=== PATIENT | male | born 1990 | race Caucasian/White ===

== ENCOUNTER 2019-06-23 13:11 | Emergency (ER) | payer OTHER, SELFPAY ==
[2019-06-23 13:15] VITALS: BP 143/87; PULSE 106; RESP 16; TEMP 36.7; O2SAT 99; BMI 29.8
--- NOTE | 2019-06-24 00:06 | ED_ITS ---
HPI - Dental/Oral <REAGAN Aviles - Last Filed: 06/24/19 00:16> General Chief complaint: Dental/Oral Stated complaint: Filling fell out,cracked tooth Time Seen by Provider: 06/23/19 13:20 Source: patient Mode of arrival: Ambulatory History of Present Illness HPI Narrative: This is 28-year-old male, nonsmoker, who presents to ED with right lower tooth filling removal and cracked tooth for last 2 months with increasing pain. Patient states he has been using Orajel and xfmr-qit-cgyrzga self filler that he had purchased from the drugstore but the pain has not been effectively managed. Patient denies fever, chills, nausea or vomiting. Patient had used ibuprofen sporadically. He does have an appointment with [facility] on 07/03/19 but he presents to ED today to get some help and pain relief. Patient denies any lymph node swelling or pain. Related Data Previous Rx's Medication Instructions Recorded naproxen [Naprosyn] 500 mg PO BIDCC #30 tab 10/11/17 penicillin V potassium 500 mg PO Q6H 7 Days #28 tab 06/23/19 Allergies Allergy/AdvReac Type Severity Reaction Status Date / Time No Known Drug Allergies Allergy Verified 06/23/19 13:15 Review of Systems <REAGAN Aviles - Last Filed: 06/24/19 00:16> Review of Systems ROS Unobtainable: All systems reviewed & are unremarkable except as noted in HPI and below PFSH <REAGAN Aviles - Last Filed: 06/24/19 00:16> Surgical History H/O hand surgery (Acute) H/O knee surgery (Acute) H/O rotator cuff surgery (Acute) Social History (Updated 06/24/19 @ 00:11 by REAGAN Aviles) Smoking Status: Never smoker Exam <REAGAN Aviles - Last Filed: 06/24/19 00:16> Narrative Exam Narrative: General appearance: well developed, well nourished, in no acute distress. Head: normocephalic, atraumatic, no scalp lesions, non-tender. No significant swelling/redness to face Eye: pupil equal, round. EOMI. Nose: nares patent. Oral: mucosa moist. Right lower diluted capped with OTC light color self-filler material. No significant swelling or redness to surrounding area. Neck/Thyroid: neck supple, full range of motion, no visible masses. Nose cervical adenopathy. Skin: no suspicious rashes, lesions over visible areas. Warm and dry. Heart: no clubbing, no cyanosis, no edema. Lungs: Breathing even and unlabored. No stridor. No accessory muscles used. Chest: normal shape and expansion. Abdomen: non-obese, non-distended. Neurologic: alert and oriented. Cognitive exam, BEVERAGE STEWARD and PNS grossly intact on informal exam. Psych: good eye contact, normal affect. Initial Vital Signs Initial Vital Signs: Vital Signs Temperature 98.0 F 06/23/19 13:15 Pulse Rate 106 H 06/23/19 13:15 Respiratory Rate 16 06/23/19 13:15 Blood Pressure 143/87 H 06/23/19 13:15 Pulse Oximetry 99 06/23/19 13:15 <Lupe Real DO - Last Filed: 06/24/19 07:47> Initial Vital Signs Initial Vital Signs: Vital Signs Temperature 98.0 F 06/23/19 13:15 Pulse Rate 106 H 06/23/19 13:15 Respiratory Rate 16 06/23/19 13:15 Blood Pressure 143/87 H 06/23/19 13:15 Pulse Oximetry 99 06/23/19 13:15 Scores <REAGAN Aviles - Last Filed: 06/24/19 00:16> GCS [place] coma scale eye opening: Spontaneous [place] coma scale verbal response: Orientated [place] coma scale motor response: Obey commands [place] coma scale total score: 15 [facility] - Dental/Oral <REAGAN Aviles - Last Filed: 06/24/19 00:16> Differential Diagnosis Differential diagnosis: Likely dental caries, toothache and other (Dental infection) Medical Records Attestation: I reviewed the patient's medical records. [facility] Narrative Medical decision making narrative: This is a 28-year-old male who presents to ED with right lower tooth aches which started about 2 months ago after tooth feeling fell off and had also fractured tooth. Patient has been using xpvt-ybg-djeiofq products to ease the pain but this were an infective. Patient advised to use osju-hei-ywzlmbx Tylenol and Motrin with food for discomfort and the medication dose and frequency were informed. Patient was prophylactically treated with penicillin for dental infection. Patient advised to follow up with dentist as scheduled on 07/03/19 and return precautions were discussed with patient. No further questions were expressed at this time and patient agrees with treatment plan. Discharge Plan Departure Patient Disposition: Home Clinical Impression: Dental infection, Pain, dental Discharge Date/Time: 06/23/19 14:23 Instructions: DI for Dental Pain Activity Restrictions/Additional Instructions: You have been diagnosed with [dental pain is likely caused by to tooth filling removal and fracture.]. What to do: *Take your medications as directed. As we discussed, please take Tylenol up to 4000 mg/24 hr period and Motrin 600-800 mg 3 times a day with food. These will help with dental pain. I will retreat you with antibiotic medication for possible dental infection. This has been transmitted to [facility]. Please take penicillin 4 times a day for next 7 days. *Follow up with your primary care provider in 2-3 days and [facility] dental clinic as scheduled on 07/03/19, call for an appointment. Let them know you were seen in the ED and that we asked you to be seen in follow up. *Return to ED if you have any new, worsening, or concerning symptoms, such as [fever, redness/swelling spreading to your face, chest pain, breathing difficulty, unable to tolerate fluids, or any acute concerns]. Prescriptions: New penicillin V potassium 500 mg tablet 500 mg PO Q6H 7 Days Qty: 28 RF: 0 No Action naproxen [Naprosyn] 500 MG tablet 500 mg PO BIDCC Qty: 30 RF: 0
== END 2019-06-23 14:23 | disposition home or self-care (01) ==
PROVIDERS: Emergency Provider Nurse Practitioner Family; Family Provider Pediatrics
DX: K04.7 Periapical abscess without sinus (principal)
CPT/HCPCS: 99282

== ENCOUNTER → 2019-08-25 11:40 | Outpatient (CLI) | payer OTHER, MEDICAID, SELFPAY ==
--- NOTE | 2019-08-25 11:44 | DI.RAD.S_ITS ---
PROCEDURE: XR LUMBAR SPINE MIN 4V INDICATIONS: low back pain with sciatica TECHNIQUE: 5 views of the lumbar spine were acquired. COMPARISON: [facility], , L-SPINE 2-3 VIEWS, 11/16/2010, 9:52. FINDINGS: Bones: 5 nonrib-bearing vertebrae are present. There is normal bony alignment. No vertebral body compression fractures. No suspicious bony lesions. Soft tissues: Overlying bowel gas pattern is normal. No suspicious soft tissue calcifications. Oblique images: No pars defects. IMPRESSION: No acute radiographic findings. No spondylolysis or spondylolisthesis. Dictated by: Kamila Wills M.D. on 08/25/2019 at 14:05 Approved by: Kamila Wills M.D. on 08/25/2019 at 14:06
--- NOTE | 2019-08-25 11:44 | DI.RAD.S_ITS ---
PROCEDURE: XR PELVIS 1-2V INDICATIONS: low back pain with sciatica TECHNIQUE: Single view(s) of the pelvis acquired. COMPARISON: [facility], , PELVIS W UNILATERAL HIP RIGHT, 06/22/2010, 15:06. FINDINGS: Bones: No fractures or dislocations. No suspicious bony lesions. Soft tissues: Visualized bowel gas pattern is normal. No suspicious soft tissue calcifications. IMPRESSION: No acute radiographic findings. If there is continued pain, followup exam or additional imaging such as MRI or CT could be performed for further assessment. Dictated by: Kamila Wills M.D. on 08/25/2019 at 14:04 Approved by: Kamila Wills M.D. on 08/25/2019 at 14:05
== END ==
PROVIDERS: PCP Family Medicine; Visit Provider Family Medicine
DX: M54.40 Lumbago with sciatica, unspecified side (principal); S06.9X9A Unspecified intracranial injury with loss of consciousness of unspecified duration, initial encounter; F43.10 Post-traumatic stress disorder, unspecified
CPT/HCPCS: 72110; 72170

== ENCOUNTER → 2019-11-14 16:01 | Outpatient (CLI) | payer OTHER, MEDICAID, SELFPAY ==
--- NOTE | 2019-11-14 16:03 | DI.RAD.S_ITS ---
PROCEDURE: XR KNEE LT 3V INDICATIONS: Bilateral knee pain TECHNIQUE: 3 views of the knee were acquired. COMPARISON: [facility], , KNEE 3V LEFT, 08/23/2008, 20:07. FINDINGS: Bones: No fractures or dislocations. No suspicious bony lesions. A 7 mm sclerotic density in the proximal tibia is most likely a pleasant. Soft tissues: No joint effusion. No suspicious soft tissue calcifications. IMPRESSION: No acute osseous abnormality. Dictated by: Maria A Mena M.D. on 11/14/2019 at 17:31 Approved by: Maria A Mena M.D. on 11/14/2019 at 17:32
--- NOTE | 2019-11-14 16:03 | DI.RAD.S_ITS ---
PROCEDURE: XR KNEE RT 3V INDICATIONS: Bilateral knee pain TECHNIQUE: 3 views of the knee were acquired. COMPARISON: None. FINDINGS: Bones: No fractures or dislocations. No suspicious bony lesions. Soft tissues: No joint effusion. No suspicious soft tissue calcifications. IMPRESSION: No acute osseous abnormality. Dictated by: Maria A Mena M.D. on 11/14/2019 at 17:32 Approved by: Maria A Mena M.D. on 11/14/2019 at 17:33
== END ==
PROVIDERS: PCP Family Medicine; Referring Provider Family Medicine; Visit Provider Family Medicine
DX: M25.561 Pain in right knee (principal); M25.562 Pain in left knee; G89.29 Other chronic pain
CPT/HCPCS: 73562

== ENCOUNTER 2019-12-26 04:29 | Day surgery (SDC) | payer OTHER, MEDICAID, SELFPAY ==
[2019-12-26] VITALS (9 sets, daily range): BP systolic 127–166; BP diastolic 72–91; PULSE 77–102; RESP 10–20; TEMP 36.3–36.8; O2SAT 93–98
[2019-12-26] MEDS: LIDO 1%/SOD BICARB 8.4% (10ML) 10 ML SYRINGE INJ (04:46)
[2019-12-26 05:48] LABS: Add Manual Diff / Slide Review NO; Basophils Absolute Auto 0 /uL (0-100); Basophils Percent Auto 0.3 % (0-2); Eosinophils Absolute Auto 100 /uL (0-450); Eosinophils Percent Auto 0.8 % (2-4); Hematocrit 49.5 % (41-53); Lymphocytes Absolute Auto 3200 /uL (1100-4500); Lymphocytes Percent Auto 37.9 % (25-40); Mean Corpuscular HGB Conc 34.3 % (30-36); Mean Corpuscular Hemoglobin 29.8 PG (26-34); Mean Corpuscular Volume 86.6 fL (80-100); Monocytes Absolute Auto 500 /uL (0-900); Neutrophils Absolute Auto 4700 /uL (1500-7000); Platelet Count 259 X10^3/uL (150-400); Red Blood Cell Count 5.71 X10^6/uL (4.5-5.9); Red Cell Distribution Width 12.9 % (11.6-14.8); White Blood Cell Count 8.6 X10^3/uL (4.5-11.0)
--- NOTE | 2019-12-26 05:52 | ED_ITS ---
HPI - Wound/Laceration General Chief Complaint: Wound/Laceration Stated Complaint: gash on rt forearm Time Seen by Provider: 12/26/19 04:30 Source: patient Mode of arrival: Ambulatory Limitations: no limitations History of Present Illness HPI narrative: 29-year-old male nonsmoker with noncontributory medical history presents with a chief complaint an accidental deep laceration on his right forearm at the base of his pinky. He states he had a few beers tonight and was wrestling with his dog out by a [place] fire and tripped and fell into a glass window which broke and lacerated his arm. He states that it was squirting blood initially and now he has decreased sensation in his right 5th finger and some decreased strength. Patient states his tetanus is up-to-date. He denies any recent cough, shortness of breath or fever. He has not had any exposure to persons under suspicion for COVID-19 Related Data Home Medications Medication Instructions Recorded Confirmed multivitamin 1 tab PO DAILY 08/07/19 11/14/19 Previous Rx's Medication Instructions Recorded escitalopram oxalate 10 mg tablet 10 mg PO DAILY #30 tab 10/30/19 Allergies Allergy/AdvReac Type Severity Reaction Status Date / Time No Known Drug Allergies Allergy Verified 11/14/19 15:19 Review of Systems Constitutional Constitutional: Denies chills, Denies fatigue, Denies fever(s), Denies frequent falls, Denies lethargy and Denies weakness Eyes Eyes: Denies change in vision, Denies eye discharge, Denies irritation and Denies loss of vision ENT Ears, Nose, Mouth, and Throat: Denies change in voice, Denies dizziness, Denies neck pain, Denies sore throat and Denies throat swelling Cardiovascular Cardiovascular: Denies chest pain, Denies irregular heart rhythm, Denies lightheadedness, Denies palpitations, Denies dyspnea, Denies dyspnea on exertion and Denies orthopnea Respiratory Respiratory: Denies cough, Denies dyspnea, Denies dyspnea on exertion and Denies wheezing Gastrointestinal Gastrointestinal: Denies abdominal pain, Denies change in bowel habits, Denies diarrhea, Denies nausea and Denies vomiting Genitourinary Genitourinary: Denies hematuria, Denies flank pain, Denies urinary incontinence and Denies urinary urgency Musculoskeletal Musculoskeletal: Denies back pain, Denies muscle weakness, Denies neck pain, Reports numbness and Reports tingling Integumentary/Breasts Skin/Breast: Denies pruritus, Denies erythema, Denies rash and Reports wounds Comments: 5th finger weakness Neurologic Neurologic: Denies behavioral changes, Denies confusion, Denies dizziness, Denies frequent falls, Denies loss of vision, Reports numbness, Reports tingling and Denies weakness Psychiatric Psychiatric: Denies anxiety, Denies behavioral changes, Denies confusion, Denies depression, Denies homicidal ideation and Denies suicidal ideation Endocrine Endocrine: Denies fatigue, Denies flushing and Denies palpitations Hematologic/Lymphatic Hematologic/Lymphatic: Denies easy bruising Allergic/Immunologic Allergic/Immunologic: Denies urticaria, Denies throat swelling and Denies wheezing Patient History Medical History Arm laceration (Acute) Bilateral chronic knee pain (Acute) Cervicothoracic somatic dysfunction (Acute) Chronic back pain (Chronic ~2014) Chronic headache (Acute) Chronic neck pain (Acute) Closed TBI (traumatic brain injury) (Acute) Cranial somatic dysfunction (Acute) Hearing loss (Chronic) Low back pain potentially associated with radiculopathy (Acute) Lower limb region somatic dysfunction (Acute) Lumbar region somatic dysfunction (Acute) Pelvic somatic dysfunction (Acute) Post concussion syndrome (Acute) PTSD (post-traumatic stress disorder) (Chronic ~2018) Right knee pain (Acute) Segmental and somatic dysfunction of abdomen and other regions (Acute) Segmental and somatic dysfunction of sacral region (Acute) Segmental and somatic dysfunction of thoracic region (Acute) Situational anxiety (Acute) Somatic dysfunction of lower extremities (Acute) Surgical History Anesthesia (Resolved) H/O hand surgery (Acute ~2008) H/O knee surgery (Acute ~2011) H/O rotator cuff surgery (Acute) History of tonsillectomy (Resolved ~2010) Family History Mother Diabetes mellitus Father No problems noted. Social History Smoking Status: Never smoker Smoking Status: Never smoker alcohol intake frequency: a few times a month Substance Use Type: does not use Exam Narrative Exam Narrative: GEN: AOx3 and in mild distress EYES: Pupils are equal, round, and reactive to light and accommodation. Extraoccular muscles are intact bilaterally. There is no subconjunctival hemorrhage or exudate. CHEST: Lungs are clear to auscultation bilaterally and free of wheezes, rales, or rhonchi. Heart rate is regular rhythm, there are no murmurs, clicks, rubs, or gallops. There is no chest wall tenderness. ABD: Abdomen is soft and nontender. There is no guarding or rebound. Bowel sounds are normal in all 4 quadrants. There is no mass or organomegaly. EXT: 3cm deep laceration on volar aspect of right forearm overlying distal ulna, proximal to wrist. Initially minimal bleeding, but after it is numbed and cleaned the bleeding becomes heavy, pulsatile and bright red. Unable to easily apply pressure to minimize bleeding. Difficult to see tendon glide, but given weakness there is suspicion of tendon involvement. Additionally, there is some numbness of left 5th finger. Ultrasound notes intact ulnar artery distal to injury. No FB noted SKIN: Warm, pink, and dry. No erythema or rash Initial Vital Signs Initial Vital Signs: Vital Signs Temperature 97.4 F L 12/26/19 04:37 Pulse Rate 98 H 12/26/19 04:37 Respiratory Rate 18 12/26/19 04:37 Blood Pressure 144/76 H 12/26/19 04:37 Pulse Oximetry 98 12/26/19 04:37 Course Orders Ordered: ED Orders 12/26/19 05:20 Basic Metabolic Panel Stat Complete Blood Count AUTO DIFF Stat Type and Screen Stat Discontinued Medications Lidocaine/Sodium Bicarbonate (Buffered Lidocaine 10 Ml Syr) 10 ml INJ NOW ONE Stop: 12/26/19 04:38 Last Admin: 12/26/19 04:46 Dose: 10 ml [facility] Vital Signs Vital signs: Vital Signs - 8 hr 12/26/19 04:37 12/26/19 05:30 Temperature 97.4 F L Pulse Rate 102 H 87 Respiratory Rate 18 14 Blood Pressure 144/76 H Blood Pressure [Left Arm] 144/76 H 136/77 Pulse Oximetry 95 95 MDM - Wound/Laceration Lab Data Result diagrams: 12/26/19 05:20 12/26/19 05:20 Labs: Lab Results 12/26/19 12/26/19 Range/Units 05:20 05:20 WBC 8.6 (4.5-11.0) X10^3/uL RBC 5.71 (4.5-5.9) X10^6/uL Hgb 17.0 (13.5-17.5) g/dL Hct 49.5 (41-53) % MCV 86.6 (80-100) fL MCH 29.8 (26-34) PG MCHC 34.3 (30-36) % RDW 12.9 (11.6-14.8) % Plt Count 259 (150-400) X10^3/uL Neut % (Auto) 55.0 (50-75) % Lymph % (Auto) 37.9 (25-40) % [place] % (Auto) 6.0 (3-14) % Eos % (Auto) 0.8 L (2-4) % Baso % (Auto) 0.3 (0-2) % Neut # (Auto) 4700 (0784-4914) /uL Lymph # (Auto) 3200 (6744-6073) /uL [place] # (Auto) 500 (0-900) /uL Eos # (Auto) 100 (0-450) /uL Baso # (Auto) 0 (0-100) /uL Sodium 139 (137-145) mmol/L Potassium 4.3 (3.4-5.1) mmol/L Chloride 109 H (98-107) mmol/L Carbon Dioxide 29 (22-32) mmol/L BUN 15 (9-20) mg/dL Creatinine 1.21 (0.66-1.25) mg/dL Estimated GFR > 60.0 (>60) mL/min BUN/Creatinine Ratio 12.4 (6-22) Glucose 95 (70-100) mg/dL Calcium 9.5 (8.4-10.2) mg/dL MDM Narrative Medical decision making narrative: given concern for deep arterial involvement and tendon involvement, call to ortho. Dr. Cavazos requests activation of surgical team for exploration Discharge Plan Departure Patient Disposition: Swing Bed/[facility] Clinical Impression: Arm laceration, Laceration of ulnar artery Admit Date/Time: 12/26/19 05:42 Admit Provider: Mayra Cavazos
[2019-12-26 05:58] LABS: BUN Creatinine Ratio 12.4 (6-22); Blood Urea Nitrogen 15 mg/dL (9-20); Calcium 9.5 mg/dL (8.4-10.2); Carbon Dioxide 29 mmol/L (22-32); Chloride 109 mmol/L (98-107); Estimated Glomerular Filt Rate > 60.0 mL/min (>60); Glucose 95 mg/dL (70-100); HEMOLYSIS 17 (0-50); Potassium 4.3 mmol/L (3.4-5.1); Sodium 139 mmol/L (137-145)
--- NOTE | 2019-12-26 06:06 | PM.HP.1 ---
History of Present Illness History of Present Illness Date Patient Seen: 12/26/19 Time Patient Seen: 06:07 Date of Onset of Symptoms: 12/26/19 Chief complaint: gash on rt forearm Narrative: 29-year-old [place] male was playing with his dog and had several beers this morning about 3:00 a.m. put his hand through a plate glass window he sustained a ulnar wrist distal forearm laceration he was unable to stop the bleeding he reports there was spurting or squirting blood at the time. He was seen in the [facility] ED suspected arterial bleeding as well as weakness and numbness suspected nerve and tendon injuries. Bleeding was not controlled with pressure in the emergency department the patient was indicated for operative exploration. Denies any allergies. Denies fevers or chills. Patient History Medical History Arm laceration (Acute) Bilateral chronic knee pain (Acute) Cervicothoracic somatic dysfunction (Acute) Chronic back pain (Chronic ~2014) Chronic headache (Acute) Chronic neck pain (Acute) Closed TBI (traumatic brain injury) (Acute) Cranial somatic dysfunction (Acute) Hearing loss (Chronic) Low back pain potentially associated with radiculopathy (Acute) Lower limb region somatic dysfunction (Acute) Lumbar region somatic dysfunction (Acute) Pelvic somatic dysfunction (Acute) Post concussion syndrome (Acute) PTSD (post-traumatic stress disorder) (Chronic ~2018) Right knee pain (Acute) Segmental and somatic dysfunction of abdomen and other regions (Acute) Segmental and somatic dysfunction of sacral region (Acute) Segmental and somatic dysfunction of thoracic region (Acute) Situational anxiety (Acute) Somatic dysfunction of lower extremities (Acute) Surgical History Anesthesia (Resolved) H/O hand surgery (Acute ~2008) H/O knee surgery (Acute ~2011) H/O rotator cuff surgery (Acute) History of tonsillectomy (Resolved ~2010) Family & Social History Family History Mother Diabetes mellitus Father No problems noted. Safety & Behavioral: Feels Safe in Current Yes Environment Tobacco & Substance use: Smoking Status Never smoker alcohol intake frequency a few times a month Substance Use Type does not use Meds Home Medications and Allergies Home Medications Medication Instructions Recorded Confirmed Type multivitamin 1 tab PO DAILY 08/07/19 11/14/19 History escitalopram oxalate 10 mg tablet 10 mg PO DAILY #30 tab 10/30/19 11/14/19 Rx Allergies Allergy/AdvReac Type Severity Reaction Status Date / Time No Known Drug Allergies Allergy Verified 11/14/19 15:19 Review of Systems Review of Systems ROS: Yes All systems reviewed with the patient and are negative except as otherwise documented Exam Vital Signs (past 8 hours): - 12/26/19 04:37 12/26/19 05:30 Temperature 97.4 F L Pulse Rate 102 H 87 Respiratory Rate 18 14 Blood Pressure 144/76 H Blood Pressure [Left Arm] 144/76 H 136/77 Pulse Oximetry 95 95 Oxygen Delivery Method Room Air Narrative Exam Narrative: Alert oriented male no acute distress Breathing unlabored on room air lungs clear to auscultation Heart regular rate and rhythm Abdomen benign Right upper extremity with a pressure wrap on the wrist laceration. Compartments are soft. Demonstrates weakness in interosseous strength on the right compared to the left does demonstrate FDP and FDS function. Palpable radial pulse digits are warm and well perfused. Full elbow range of motion. Decreased sensation ulnar small finger Objective Labs Result Diagrams: 12/26/19 05:20 12/26/19 05:20 Labs: Laboratory Results - last 24 hr 12/26/19 12/26/19 05:20 05:20 WBC 8.6 RBC 5.71 Hgb 17.0 Hct 49.5 MCV 86.6 MCH 29.8 MCHC 34.3 RDW 12.9 Plt Count 259 Neut % (Auto) 55.0 Lymph % (Auto) 37.9 [place] % (Auto) 6.0 Eos % (Auto) 0.8 L Baso % (Auto) 0.3 Neut # (Auto) 4700 Lymph # (Auto) 3200 [place] # (Auto) 500 Eos # (Auto) 100 Baso # (Auto) 0 Sodium 139 Potassium 4.3 Chloride 109 H Carbon Dioxide 29 BUN 15 Creatinine 1.21 Estimated GFR > 60.0 BUN/Creatinine Ratio 12.4 Glucose 95 Calcium 9.5 Assessment & Plan Assessment & Plan narrative: Wrist volar ulnar laceration. Presumed arterial and nerve injury. Possible tendon injury. Deep laceration with uncontrolled pulsatile bleeding in the ER. Patient was indicated for operative exploration. Discussed with the patient risks benefits and alternatives including but not limited to need for additional later surgery or reconstruction. Discussed risks with nerve injury numbness weakness clawing and deformity as well as stiffness after lacerations and/or tendon repair. Patient understands and agrees with the plan. I discussed exploration of the wound would be performed with repair of structures as indicated. Based on operative findings patient may need later referral to a hand or micro surgeon if indicated. Patient understands and agrees with the plan. Consent was signed. He will be taken to the operative room emergently. The risks and benefits of the procedure have been discussed with the patient even opportunity to ask questions. The risks of surgery include but are not limited to infection, malunion, nonunion, persistence of pain, damage to nerves and blood vessels, posttraumatic arthritis, DVT, PE, cardiopulmonary complications and . The patient expressed a thorough understanding of the risks and benefits of surgery and has elected to proceed. Consent was signed in today. Time Spent With Patient Time with patient: less than 15 minutes Quality VTE Deep Vein Thrombosis/Pulmonary Embolism Present on Admission: No
--- NOTE | 2019-12-26 06:13 | PM.PREOP ---
Pre-operative Note Interval Note History & Physical reviewed/Exam performed by Physician: Yes Changes to H&P: No
[2019-12-26] MEDS: LACTATED RINGERS 1,000 ML 42 ML IV ×2 (06:15→09:36)
[2019-12-26] MEDS: CEFAZOLIN 2 GM/100 ML FROZ.PIGGY IV (06:39)
--- NOTE | 2019-12-26 07:16 | SUR.OPER ---
Supine on padded OR bed, head on pillow, left arm secured on padded arm board at <90 degrees abduction, operative right arm on hand table, legs uncrossed, safety belt at thigh, tape over blanket over lower legs.
--- NOTE | 2019-12-26 08:31 | PM.OP.1 ---
Operative Date/Time/Diagnoses Date of procedure: 12/26/19 Time of procedure: 06:42 Pre-op diagnosis: Right volar wrist laceration Post-op diagnosis: other (Right volar wrist laceration, flexor carpi ulnaris tendon laceration) Procedure & Clinicians Procedure: Exploration irrigation debridement volar right wrist laceration Repair flexor carpi ulnaris tendon 47381 Layered closure laceration 44608 Exploration removal foreign body right wrist 35307 Same procedure as scheduled: Yes Indications: Patient is a 29-year-old mnkgq-wyik-lascjock male that was playing with his dog outside near of [employer] early this morning about 3:00 a.m.. He threw the ball near the fire and to avoid the dog going near the fire he reached out but ended up placing his based through his jeep window. He sustained a complex deep laceration to the volar right wrist with pulsatile bleeding. He was unable to stop the bleeding a presented to the ER where the bleeding continued and was not controlled. Additionally the patient endorsed loss of sensation the ulnar side of his hand and weakness in interosseous function he was able to demonstrate FDP and FDS function. Was indicated for emergent operative intervention for suspected arterial and nerve injury exploration of the wound repair of structures as indicated. The risks and benefits of the procedure have been discussed with the patient even opportunity to ask questions. The risks of surgery include but are not limited to infection, persistence of pain, damage to nerves and blood vessels, persistent numbness, deformity, clawing, weakness, stiffness, need for additional procedures, DVT, PE, cardiopulmonary complications and . The patient expressed a thorough understanding of the risks and benefits of surgery and has elected to proceed. Consent was signed. We also discussed that depending on the findings he may be indicated for additional referral to hand or micro surgery Surgeon: Mayra Cavazos Click Yes if Unassisted: Yes Anesthesia Type: General Operative Notes Findings: Complex oblique deep volar ulnar wrist laceration proximal to the retinaculum. 90% laceration of flexor carpi ulnaris tendon. Retained foreign bodies-glass. Closure Type: primary Specimen(s): none sent Prosthetic devices, grafts, tissues, transplants, or devices: Splint Estimated Blood Loss (mL): 10 Blood products transfused: none Tourniquet time (min): 55 Procedure in detail: Patient was seen in the emergency room and examined consent was signed and the site of surgery was marked. The patient was brought then brought directly to the operating room by the anesthesia team. Was positioned supine on the operative table and underwent general endotracheal anesthesia utilizing the standard airborne precautions during the pandemic. The rest of the staph entered the room. The right upper extremities prepped and draped in the standard sterile fashion. A nonsterile brachial tourniquet was placed. The pressure dressing from the ER was removed was noted at this time that the bleeding from the wrist laceration had stopped. The wrist was prepped and draped in the standard sterile fashion. Formal time-out procedure was performed confirming the patient's side and site of surgery administered option of a preoperative antibiotics and informed consent. All were in agreement Attention turned to the right upper extremity. Esmarch tourniquet was used for exsanguination the tourniquet raised to 250 mm of mercury and stayed there for 55 minutes The volar ulnar incision was approximately 4 cm in length this was extended proximally and distally for exposure. Incision was taken to the skin subcutaneous tissue. The wound was explored there was some hemorrhage muscle. The FCU tendon was found and noted to be nearly 90% lacerated. With into the tendon laceration was a proximally 0.5 cm glass fragment foreign body this was removed. An additional 3 smaller glass fragments were also found in this area of the wound and carefully removed. A thorough exploration of the tendinous and neurovascular structures was completed proximal and distal noting intact flexor digitorum superficialis flexor digitorum profundus muscles. The neurovascular bundle was explored. The ulnar artery and veins and ulnar nerve did appear intact however in the location of the wound these did lie directly behind the area of the FCU tendon lacerations or certainly very near the site of injury. Flexor carpi ulnaris tendon repair was performed with 2 0 FiberWire in a locking technique. At the completion of the exploration the wound was irrigated thoroughly with saline and the tourniquet was released. Hemostasis was achieved there were few superficial venous bleeders. No pulsatile bleeding was observed at this time and anabaptism of the ulnar pulse observing the artery in the wound was noted. The hand was well perfused. The wound was then closed in a layered fashion with 3 O Vicryl and 3 O nylon suture. A dorsal blocking splint in slight wrist flexion was placed to protect the FCU repair. Patient was then woken from anesthesia and taken to recovery room in good condition. There no immediate complications from this procedure. Complications: none Post-operative Condition: stable Disposition: PACU Plan for aftercare: Discharged from PACU home. Follow up in 2 weeks for suture removal and splint removal. Keep splint clean dry and intact. Take oral antibiotic prescription as ordered.
[2019-12-26] MEDS: OXYCODONE/ACETAMINOPHEN 5/325 TABLET 1 TAB PO (09:28)
--- NOTE | 2019-12-26 09:30 | SUR.PHASEI ---
Stable PACU stay. Recieved fentanyl by Dr. Vernon. and percocet by this RN. Dr Cavazos to bedside and spoke at length with pt
--- NOTE | 2019-12-26 10:04 | SUR.PHASEII ---
D/C instructions discussed, r arm remained iced and elevated while here. Mom called, pt dressed when ready. Stated pain tolerable and had juice and pudding prior to d/c.
--- NOTE | 2019-12-26 10:33 | SUR.PHASEII ---
Pt left unit in stable condition and care taken over by his mom.
== END 2019-12-26 10:10 | disposition home or self-care (01) ==
LOC: ED 04:37 → AC 06:58 → OR 09:24
PROVIDERS: Emergency Provider Emergency Medicine; PCP Family Medicine; Referring Provider Emergency Medicine; Visit Provider Orthopaedic Surgery Foot and Ankle Surgery
PROC: (CPT 25260; principal; 2019-12-26 06:10)
DX: S56.221A Laceration of other flexor muscle, fascia and tendon at forearm level, right arm, initial encounter (principal); W45.8XXA Other foreign body or object entering through skin, initial encounter; W25.XXXA Contact with sharp glass, initial encounter; W22.09XA Striking against other stationary object, initial encounter; Y93.89 Activity, other specified; W18.39XA Other fall on same level, initial encounter
CPT/HCPCS: 25260; 25248; 36415; 80048; 85025; 86850; 86900; 86901; 99284; J0330; J0690; J1100; J2405; J2704; J3010

== ENCOUNTER 2021-07-08 12:58 | Emergency (ER) | payer OTHER, MEDICAID, SELFPAY ==
[2021-07-08 13:09] VITALS: BP 121/70; PULSE 68; RESP 15; TEMP 36.3; O2SAT 98; BMI 30.9
[2021-07-08] MEDS: KETOROLAC 30 MG/ML VIAL IM (14:13)
[2021-07-08] MEDS: LIDO 1%/SOD BICARB 8.4% (10ML) 10 ML SYRINGE INJ (14:34)
[2021-07-08 15:35] VITALS: BP 129/83; PULSE 73; O2SAT 96
--- NOTE | 2021-07-08 21:16 | ED_ITS ---
HPI - Skin/Abscess/Foreign Bdy <REAGAN Ritter - Last Filed: 07/08/21 21:30> General Chief complaint: Skin/Abscess/Foreign Body Stated complaint: Knot on Tailbone, Impairing Walking Time Seen by Provider: 07/08/21 13:41 Source: patient Mode of arrival: Ambulatory Limitations: no limitations History of Present Illness HPI narrative: Mauricio Cardona is a 30-year-old male without any pertinent medical history who presents to the ED today for 3 days of painful bump on his tailbone that is worse with walking. He denies any recent fever, no history of this in the past, he denies any substance use. He states he has been using ice which has been helpful. He denies any rash or a painful spine. He reports that he feels like it is swelling it is getting worse. Related Data Home Medications Medication Instructions Recorded Confirmed multivitamin (Daily Multi-Vitamin) 1 tab PO DAILY 08/07/19 10/09/20 Previous Rx's Medication Instructions Recorded escitalopram oxalate 10 mg tablet 10 mg PO DAILY #30 tab 10/30/19 hydrocodone 5 mg-acetaminophen 325 1 tab PO Q6H PRN #20 tab 12/26/19 mg tablet amoxicillin 875 mg-potassium 1 tab PO BID 5 Days #10 tab 07/08/21 clavulanate 125 mg tablet (Augmentin) tramadol 50 mg tablet 50 mg PO BID PRN #14 tab 07/08/21 Allergies Allergy/AdvReac Type Severity Reaction Status Date / Time No Known Drug Allergies Allergy Verified 07/08/21 13:09 Review of Systems <REAGAN Ritter - Last Filed: 07/08/21 21:30> Review of Systems Narrative: General: denies fever, chills Head/Neck: denies headache, neck pain Eyes: denies visual changes, eye pain Cardio: denies chest pain, palpitations Respiratory: denies shortness of breath, cough GI: denies abdominal pain, nausea, vomiting, or diarrhea : denies dysuria, hematuria MSK: denies joint pain, muscle weakness Skin: denies rash, itching,complains of bump on tailbone Neuro: denies numbness, tingling Patient History <REAGAN Ritter - Last Filed: 07/08/21 21:30> Medical History (Updated 07/08/21 @ 15:25 by REAGAN Ritter) Acute low back pain Arm laceration Bilateral chronic knee pain Cervicothoracic somatic dysfunction Chronic back pain (~2014) Chronic headache Chronic neck pain Chronic pain of left knee Closed TBI (traumatic brain injury) Constipation Cranial somatic dysfunction Difficulty controlling anger Hearing loss Low back pain potentially associated with radiculopathy Lower limb region somatic dysfunction Lumbar region somatic dysfunction Pelvic somatic dysfunction Post concussion syndrome PTSD (post-traumatic stress disorder) (~2018) Right knee pain Segmental and somatic dysfunction of abdomen and other regions Segmental and somatic dysfunction of sacral region Segmental and somatic dysfunction of thoracic region Situational anxiety Sleep behavior disorder, REM Somatic dysfunction of lower extremities Surgical History Anesthesia H/O hand surgery (~2008) H/O knee surgery (~2011) H/O rotator cuff surgery History of tonsillectomy (~2010) Family History Mother Diabetes mellitus Father No problems noted. Social History Smoking Status: Never smoker Smoking Status: Never smoker alcohol intake frequency: a few times a week Substance Use Type: does not use Exam <REAGAN Ritter - Last Filed: 07/08/21 21:30> Narrative Exam Narrative: Independently reviewed vitals signs and nursing notes. General: Awake, alert, nontoxic, no cardiorespiratory distress Head/Neck: Atraumatic, neck full range of motion Eyes: EOMI, conjunctiva normal Nose: nares patent, no rhinorrhea Mouth/Throat: moist mucus membranes, posterior pharynx normal, no oral lesions Cardio: Regular rate and rhythm, no peripheral edema Respiratory: respirations unlabored without wheezing, stridor, or rales. No retractions. GI: Abdomen soft, nontender MSK: Moves all extremities, neurovascularly intact Skin: Normal capillary refill, no rash, 2 cm x 1 cm erythematous and edematous abscess tracking laterally to the left from anal verge up Neuro: Normal speech and cognition, normal gait Initial Vital Signs Initial Vital Signs: Vital Signs Temperature 97.3 F L 07/08/21 13:09 Pulse Rate 68 07/08/21 13:09 Respiratory Rate 15 07/08/21 13:09 Blood Pressure 121/70 07/08/21 13:09 Pulse Oximetry 98 07/08/21 13:09 <Ilsa Crenshaw MD - Last Filed: 07/09/21 07:40> Initial Vital Signs Initial Vital Signs: Vital Signs Temperature 97.3 F L 07/08/21 13:09 Pulse Rate 68 07/08/21 13:09 Respiratory Rate 15 07/08/21 13:09 Blood Pressure 121/70 07/08/21 13:09 Pulse Oximetry 98 07/08/21 13:09 Procedures <REAGAN Ritter - Last Filed: 07/08/21 21:30> Abscess I/D I&D #1: Site: rishi-rectal Side (if applicable): left (Midline incision) Local Anesthetic: lidocaine 1% and with bicarb Amount of anesthesia used (mL): 8 Technique: incised with #11 blade Amount of fluid expressed (mL): 5 Irrigation: Yes Packing used?: none Course <REAGAN Ritter - Last Filed: 07/08/21 21:30> Orders Ordered: Discontinued Medications Ketorolac Tromethamine (Ketorolac 30 Mg/Ml Vial) 30 mg IM NOW ONE Stop: 07/08/21 14:09 Last Admin: 07/08/21 14:13 Dose: 30 mg Documented by: CLAUDE Vital Signs Vital signs: Vital Signs - 8 hr 07/08/21 15:35 Pulse Rate 73 Blood Pressure 129/83 Pulse Oximetry 96 <Ilsa Crenshaw MD - Last Filed: 07/09/21 07:40> Orders Ordered: Discontinued Medications Ketorolac Tromethamine (Ketorolac 30 Mg/Ml Vial) 30 mg IM NOW ONE Stop: 07/08/21 14:09 Last Admin: 07/08/21 14:13 Dose: 30 mg Documented by: CLAUDE Vital Signs Vital signs: Vital Signs - 8 hr 07/08/21 15:35 Pulse Rate 73 Blood Pressure 129/83 Pulse Oximetry 96 MDM - Skin/Abscess/Foreign Bdy <REAGAN Ritter - Last Filed: 07/08/21 21:30> MDM Narrative Medical decision making narrative: 30-year-old male presents the ED today for what is most likely a pilonidal cyst without abscess that has been bothersome for 1 month. I and D of the round, erythematous and edematous area without any purulent drainage. Granulation tissue was debrided, there were no signs of cellulitis or spreading. Patient had approximate 5 ml blood loss with some clear and bloody fluid drainage. Differential includes pilonidal cyst with abscess, cellulitis, pilonidal cyst without abscess. Patient is appropriate and amenable to discharge home. Vital signs are stable on repeat examination is unremarkable. Patient has been informed of results. Patient has been given strict return to ER precautions for any new or worsening symptoms. Patient understands to follow up closely with outpatient providers as instructed. Patient understands plan and agrees to discharge home. All questions and concerns answered at this time. Discharge Plan Departure Patient Disposition: Home Clinical Impression: Pilonidal cyst Instructions: DI for Pilonidal Cyst Drainage or Removal Activity Restrictions/Additional Instructions: *You have been diagnosed with a pilonidal cyst, it does not appear to be an abscess at this time. Sorry for how long the procedure took today, I think that we treated what I could today, unfortunately there was not a pocket of pus which made it obvious. Please start your antibiotics tonight, return to the emergency department or the walk-in clinic if this gets worse, or you develop a fever, or started feeling ill. Please continue to warm moist packs 4 to 6 times a day to encourage drainage and healing from the inside out. I hope you feel better soon, you are always welcome to come back here if this returns. *What to do: *Please continue to take your regular medications as directed. [x] New medication prescriptions sent to your pharmacy: [[facility]] [ ] New medication written as a paper prescription [ ] No new medications given *Please follow up with your primary care provider in 2-3 days, call for an appointment. Let them know you were seen in the Emergency Department and that we ask that you be seen in follow up. We will electronically transmit a record of today's note if your PCP is in our system *If you do not have a primary care provider please contact the [facility] Resource line at [phone]. They will ask some questions about your medical history and help get you set up with a doctor in the community. *Return to Emergency Department if you should have any new, worsening or concerning symptoms, such as [fever greater than 101F, chills, worsening pain, persistent vomiting or other bothersome symptoms] Prescriptions: New amoxicillin-pot clavulanate [Augmentin] 875-125 mg tablet 1 tab PO BID 5 Days Qty: 10 RF: 0 tramadol 50 mg tablet 50 mg PO BID PRN (Reason: pain) Qty: 14 RF: 0 No Action multivitamin [Daily Multi-Vitamin] Tablet 1 tab PO DAILY RF: 0 escitalopram oxalate 10 mg tablet 10 mg PO DAILY Qty: 30 RF: 1 hydrocodone-acetaminophen 5-325 mg tablet 1 tab PO Q6H PRN (Reason: pain) Qty: 20 RF: 0 Referrals: Cornelius Eckert DO [Primary Care Provider] - <Ilsa Crenshaw MD - Last Filed: 07/09/21 07:40> [facility]: I was immediately available in the department for consultation throughout this patient's visit. I agree with documentation as above. Ilsa Crenshaw MD
== END 2021-07-08 15:36 | disposition home or self-care (01) ==
PROVIDERS: Emergency Provider Nurse Practitioner Critical Care Medicine; PCP Family Medicine
DX: L05.01 Pilonidal cyst with abscess (principal)
CPT/HCPCS: 10060; 96372; 99283; J1885

== ENCOUNTER → 2022-04-05 10:24 | Outpatient (CLI) | payer OTHER, MEDICAID, SELFPAY ==
[2022-04-05 12:10] LABS: Add Manual Diff / Slide Review NO; Basophils Absolute Auto 0 /uL (0-100); Basophils Percent Auto 0.4 % (0-2); Eosinophils Absolute Auto 100 /uL (0-450); Eosinophils Percent Auto 1.7 % (2-4); Hematocrit 46.7 % (41-53); Hemoglobin 16.3 g/dL (13.5-17.5); Lymphocytes Absolute Auto 2000 /uL (1100-4500); Lymphocytes Percent Auto 31.4 % (25-40); Mean Corpuscular Hemoglobin 28.9 PG (26-34); Mean Corpuscular Volume 82.6 fL (80-100); Monocytes Absolute Auto 400 /uL (0-900); Monocytes Percent Auto 6.2 % (3-14); Neutrophils Absolute Auto 3800 /uL (1500-7000); Neutrophils Percent Auto 60.3 % (50-75); Platelet Count 232 X10^3/uL (150-400); Red Blood Cell Count 5.65 X10^6/uL (4.5-5.9); Red Cell Distribution Width 12.7 % (11.6-14.8); White Blood Cell Count 6.3 X10^3/uL (4.5-11.0)
[2022-04-05 13:03] LABS: Alanine Aminotransferase 54 IU/L (<50); Albumin 4.6 g/dL (3.5-5.0); Albumin Globulin Ratio 1.6 (1.0-2.8); Alkaline Phosphatase 79 U/L (38-126); Aspartate Aminotransferase 31 IU/L (17-59); BUN Creatinine Ratio 19.6 (6-22); Bilirubin Total 0.7 mg/dL (0.2-1.3); Blood Urea Nitrogen 18 mg/dL (9-20); Calcium 9.2 mg/dL (8.4-10.2); Carbon Dioxide 27 mmol/L (22-32); Chloride 104 mmol/L (98-107); Cholesterol 193 mg/dL (140-199); Estimated Glomerular Filt Rate > 60 mL/min (>60); Globulin 2.8 g/dL (1.7-4.1); Glucose 93 mg/dL (70-100); HDL Cholesterol 29 mg/dL (40-60); HEMOLYSIS < 15 (0-50); LDL Cholesterol Calculated 144 mg/dL (<100); Potassium 4.3 mmol/L (3.4-5.1); Sodium 139 mmol/L (137-145); Total Protein 7.4 g/dL (6.3-8.2); Triglycerides 98 mg/dL (35-150)
== END ==
PROVIDERS: PCP Family Medicine; Referring Provider Family Medicine; Visit Provider Family Medicine
DX: F10.21 Alcohol dependence, in remission (principal)
CPT/HCPCS: 36415; 80053; 80061; 85025

== ENCOUNTER → 2022-06-30 10:17 | Outpatient (CLI) | payer OTHER, MEDICAID, SELFPAY ==
[2022-07-14 10:01] LABS: Percent Free Testosterone 2.68 % (1.50-4.20); Testosterone Free 14.28 ng/dL (5.00-21.00); Testosterone Total 532.9 ng/dL (264.0-916.0)
== END ==
PROVIDERS: PCP Family Medicine; Referring Provider Family Medicine; Visit Provider Family Medicine
DX: N52.9 Male erectile dysfunction, unspecified (principal)
CPT/HCPCS: 36415; 84402; 84403

== ENCOUNTER → 2022-08-23 10:31 | Outpatient (CLI) | payer OTHER, MEDICAID, SELFPAY ==
[2022-08-23 11:46] LABS: COVID19 -Nasal RAPID Negative (Negative)
== END ==
PROVIDERS: PCP Family Medicine; Visit Provider Surgery
DX: Z20.822 Contact with and (suspected) exposure to COVID-19; Z01.812 Encounter for preprocedural laboratory examination
CPT/HCPCS: 87635; C9803

== ENCOUNTER 2022-08-24 14:54 | Day surgery (SDC) | payer OTHER, MEDICAID, SELFPAY ==
[2022-08-22 14:51] VITALS: BMI 29.8
[2022-08-24] VITALS (8 sets, daily range): BP systolic 96–123; BP diastolic 38–84; PULSE 64–84; RESP 10–19; TEMP 36.4–37.1; O2SAT 92–100; BMI 29.8
--- NOTE | 2022-08-24 | PATH_ITS ---
[facility] Accession Number: [id number] . 01 Material submitted: . skin - PILONIDAL CYST . 01 Diagnosis: Pilonidal Cyst, Excision: Dermal fibrosis with mixed inflammation and squamous-lined cystic structure with multiple hair shafts, compatible with the clinical concern for pilonidal disease. MRV 08/29/2022 1721 Local . 01 Comment: A PAS fungal stain is performed and is negative for fungal hyphae. . 01 Electronically signed: . Bernard Godinez MD, Dermatopathologist NPI- [id number] . 01 Gross description: . The specimen is received in formalin labeled with the patient's name, , and pilonidal cyst, and consists of an unoriented ellipse of skin measuring 3.4 x 0.5 cm and excised to a depth of 0.3 cm. The cutaneous surface is significant for a linear induration running the length of the specimen. The margin is inked green. The specimen is serially sectioned to reveal a cystic structure filled with carmichael grumous material measuring approximately 2.5 cm in length and 0.7 cm in diameter. Child Care Attendant sections are submitted in cassette A1. ([id number]) /MRV 08/25/2022 1835 Local . 01 Pathologist provided ICD-10: L05.91 . 01 CPT . 964947, [id number] Specimen Comment: A courtesy copy of this report has been sent to [phone] Performed at: [address] [facility] [facility], [place], [place] [id number] MD Blair Becker MD Phone: [phone]
[2022-08-24] MEDS: LACTATED RINGERS 1,000 ML 42 ML IV (15:46)
--- NOTE | 2022-08-24 15:48 | PM.PREOP ---
Pre-operative Note Interval Note History & Physical reviewed/Exam performed by Physician: Yes Changes to H&P: No
--- NOTE | 2022-08-24 15:56 | PM.OP.1 ---
Operative Date/Time/Diagnoses Date of procedure: 08/24/22 Time of procedure: 15:56 Pre-op diagnosis: Pilonidal cyst Post-op diagnosis: same Procedure & Clinicians Procedure: Excision of pilonidal cyst/complex Same procedure as scheduled: Yes Indications: Recurrent symptomatic pilonidal cyst Surgeon: Alvin Brock Click Yes if Unassisted: Yes Anesthesia Type: General Operative Notes Findings: complex pilonidal cyst with multiple tunnels Specimen(s): other (Pilonidal cyst) Estimated Blood Loss (mL): 20 Procedure in detail: Patient was right to the operating room and bilateral lower extremity compression devices were applied. General anesthesia was induced and he was intubated with a endotracheal tube. He was then placed into the prone position and appropriately padded. 2 g of Ancef were given prior to skin incision. He was then prepped and draped in the usual sterile fashion. A time-out was performed ensure the correct patient procedure necessary equipment within the operating room. 0.25% bupivicaine was injected into the skin. An elliptical incision was made around the multiple pits of the pilonidal cyst. Pilonidal cyst did not appear to be actively infective but had multiple tunneling tracks. It was excised in its entirety off of the sacral fascia.. Wound was hemostatic and thouroughly irrigated. Skin flaps were raised bilaterally. the subcutaneous tissue was closed with running vicryl. The skin was then closed with interrupted Nylon sutures. Patient tolerated procedure well was returned to supine position extubated and transferred to the postoperative care unit in stable condition. Complications: none Post-operative Condition: stable Disposition: same day surgery
[2022-08-24] MEDS: CEFAZOLIN 2 GM/100 ML PREMIX 100 ML IV (16:21)
--- NOTE | 2022-08-24 16:28 | SUR.OPER ---
Prone on padded OR bed, head in foam head support, gel chest rolls, gel pad under knees, pillow under lower legs, toes free of pressure, arms secured on padded arm boards at <90 degrees abduction. Safety belt at thigh.
[2022-08-24] MEDS: BUPIVACAINE 0.25% (PF) VIAL 30 ML INJ ×2 (16:38→16:39)
--- NOTE | 2022-08-24 17:33 | SUR.PHASEI ---
report given to CHARLETTE Cuevas at [phone]
[2022-08-24] MEDS: OXYCODONE IR 5 MG TABLET PO (17:45)
== END 2022-08-24 18:08 | disposition home or self-care (01) ==
PROVIDERS: PCP Family Medicine; Referring Provider Surgery; Visit Provider Surgery
PROC: (CPT 11771; principal; 2022-08-24 16:15)
DX: L05.91 Pilonidal cyst without abscess (principal)
CPT/HCPCS: 11771; 82962; J0690; J1100; J1885; J2405; J2704; J3010; J3490

== ENCOUNTER 2023-10-03 17:27 | Emergency (ER) | payer OTHER, SELFPAY ==
[2023-10-03 17:39] VITALS: BP 122/60; PULSE 99; RESP 20; TEMP 38.3; O2SAT 98; BMI 27.8
[2023-10-03] MEDS: SODIUM CHLORIDE 0.9% 1,000 ML 1000 ML IV (18:09)
[2023-10-03 18:25] LABS: Add Manual Diff / Slide Review NO; Basophils Absolute Auto 100 /uL (0-100); Basophils Percent Auto 0.4 % (0-2); Eosinophils Absolute Auto 100 /uL (0-450); Eosinophils Percent Auto 0.4 % (2-4); Hematocrit 43.4 % (41-53); Hemoglobin 14.6 g/dL (13.5-17.5); Lymphocytes Absolute Auto 1600 /uL (1100-4500); Lymphocytes Percent Auto 12.4 % (25-40); Mean Corpuscular HGB Conc 33.7 % (30-36); Mean Corpuscular Hemoglobin 29.2 PG (26-34); Mean Corpuscular Volume 86.6 fL (80-100); Monocytes Absolute Auto 900 /uL (0-900); Monocytes Percent Auto 7.1 % (3-14); Neutrophils Absolute Auto 10500 /uL (1500-7000); Neutrophils Percent Auto 79.7 % (50-75); Platelet Count 245 X10^3/uL (150-400); Red Blood Cell Count 5.01 X10^6/uL (4.5-5.9); Red Cell Distribution Width 13.2 % (11.6-14.8); White Blood Cell Count 13.2 X10^3/uL (4.5-11.0)
[2023-10-03 18:34] LABS: Alanine Aminotransferase 38 IU/L (<50); Albumin Globulin Ratio 1.2 (1.0-2.8); Alkaline Phosphatase 97 U/L (38-126); Aspartate Aminotransferase 27 IU/L (17-59); BUN Creatinine Ratio 19.6 (6-22); Bilirubin Total 0.7 mg/dL (0.2-1.3); Blood Urea Nitrogen 18 mg/dL (9-20); Calcium 9.3 mg/dL (8.4-10.2); Carbon Dioxide 32 mmol/L (22-32); Chloride 99 mmol/L (98-107); Estimated Glomerular Filt Rate > 60 mL/min (>60); Globulin 3.3 g/dL (1.7-4.1); Glucose 98 mg/dL (70-100); HEMOLYSIS 19 (0-50); Lipase 56 U/L (23-300); Potassium 3.9 mmol/L (3.4-5.1); Sodium 135 mmol/L (137-145); Total Protein 7.3 g/dL (6.3-8.2)
[2023-10-03 18:35] LABS: Lactate (Lactic Acid) 1.3 mmol/L (0.7-2.1)
[2023-10-03 18:49] LABS: Procalcitonin 0.07 ng/mL (<0.5)
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
[2023-10-03 19:00] LABS: INR 1.1 (0.9-1.3); Prothrombin Time 12.4 SECONDS (9.4-12.5)
[2023-10-03 19:03] LABS: PTT Partial Thromboplastin Tim 27 SECONDS (25.1-36.5)
[2023-10-03] MEDS: VANCOMYCIN 1,000 MG/200 ML PIGGYBACK 200 MG IV (19:05)
[2023-10-03 19:43] VITALS: BP 124/62; PULSE 95; RESP 18; O2SAT 18
== END 2023-10-03 20:22 | disposition home or self-care (01) ==
PROVIDERS: Emergency Medicine; Emergency Provider Emergency Medicine; PCP Family Medicine
DX: L03.113 Cellulitis of right upper limb (principal)
CPT/HCPCS: 36415; 80053; 83605; 83690; 84145; 85025; 85610; 85730; 87040; 96365; 99284